=== PATIENT | male | born 1975 ===

== ENCOUNTER 2017-09-23 23:11 | Emergency (ER) | payer SELFPAY ==
[2017-09-23 23:31] VITALS: BP 129/87; PULSE 84; RESP 20; TEMP 97.4; O2SAT 99
[2017-09-24] MEDS ORDERED: Dexamethasone 4 mg/1 ml IM STA (00:03)
[2017-09-24] MEDS ORDERED: Dexamethasone 4 mg/1 ml ONE (00:10)
--- NOTE | 2017-09-24 00:27 | C.PDOC ---
History Of Present Illness 42 year old male presents to the ER with a complaint of left sided neck pain radiating to the left upper back and left shoulder. Patient reports [place] was [place] [facility] [place] and discharged with valium but he states it is not working and wants something else for the pain. Denies new injury or trauma, no weakness, numbness of extremities, no CP, SOB. Time Seen by Provider: 09/23/17 23:35 Chief Complaint (Nursing): Upper Extremity Problem/Injury History Per: Patient History/Exam Limitations: no limitations Onset/Duration Of Symptoms: Hrs Current Symptoms Are (Timing): Still Present Exacerbating Factor(s): Movement Recent travel outside of the [place]: No Past Medical History Reviewed: Historical Data, Nursing Documentation, Vital Signs Vital Signs: Last Vital Signs Temp 97.4 F L 09/23/17 23:25 Pulse 84 09/23/17 23:25 Resp 20 09/23/17 23:25 BP 129/87 09/23/17 23:25 Pulse Ox 99 09/24/17 04:30 - Medical History PMH: No Chronic Diseases Surgical History: No Surg Hx Family History: States: Unknown Family Hx - Social History Hx Alcohol Use: No Hx Substance Use: No Review Of Systems Constitutional: Negative for: Fever, Chills Musculoskeletal: Positive for: Neck Pain, Shoulder Pain, Back Pain Neurological: Negative for: Weakness, Numbness Physical Exam - Physical Exam Appears: Non-toxic, No Acute Distress Skin: Normal Color, Warm, Dry Head: Atraumatic, Normacephalic Eye(s): bilateral: Normal Inspection, PERRL, EOMI Oral Mucosa: Moist Neck: Decreased ROM (sec to pain), No Midline Cervical Tenderness, Paracervical Tenderness (Left) Cardiovascular: Rhythm Regular Respiratory: Normal Breath Sounds, No Wheezing Extremity: Normal ROM (x4), No Tenderness, No Deformity, Other (Pain to left neck with left shoulder motion) Extremity: Bilateral: Atraumatic, Normal Color And Temperature Pulses: Left Radial: Normal, Right Radial: Normal Neurological/Psych: Oriented x3, Normal Speech, Normal Cognition, Normal Motor, Normal Sensation ED Course And Treatment O2 Sat by Pulse Oximetry: 99 (Room air) Pulse Ox Interpretation: Normal Progress Note: Decadron and toradol administered. Patient is resting comfortably , is no longer having back pain, neck pain, no bony tenderness, no numbness, no weakness, or abdominal pain. Patient is ambulatory in the emergency department with no signs of discomfort. Patient was advised to follow up with their PMD in 1-2 days. Reassessment Condition: Improved Disposition Counseled Patient/Family Regarding: Diagnosis, Need For Followup, Rx Given - Disposition Referrals: Tracy Chowdhury MD [Medical Doctor] - Disposition: HOME/ ROUTINE Disposition Time: 00:24 Condition: STABLE Additional Instructions: Continue meds as prescribed Follow up with your primary doctor Return to ER if worse Prescriptions: Naproxen [Naprosyn] 1 tab PO BID PRN #20 tab PRN Reason: Pain Instructions: Cervical Strain (GEN) Forms: Serious Parody (Lao) - Clinical Impression Clinical Impression: Torticollis - Scribe Statement The provider has reviewed the documentation as recorded by the Scribhoracio Russo All medical record entries made by the Scribe were at my direction and personally dictated by me. I have reviewed the chart and agree that the record accurately reflects my personal performance of the history, physical exam, medical decision making, and the department course for this patient. I have also personally directed, reviewed, and agree with the discharge instructions and disposition.
== END 2017-09-24 00:30 | disposition home or self-care (01) ==
LOC: C.ER 23:11
DX: M43.6 Torticollis (principal)
CPT/HCPCS: 96372; 99284; J1100; J1885